=== PATIENT | male | born 2000 | race American Indian/Alaskan Native ===

== ENCOUNTER 2020-07-25 14:33 | Emergency (ER) | payer SELFPAY ==
--- NOTE | 2020-07-25 17:06 | Emergency Department Report ---
- General Chief complaint: Skin Rash Stated complaint: BREAKING OUT BUMPS ON BODY Time Seen by Provider: 07/25/20 17:01 Source: patient Mode of arrival: Ambulatory Limitations: No Limitations - History of Present Illness Initial comments: Patient is a 20-year-old male presents emergency room with complaints of a diffuse rash that began 6 days ago. He states initially it became a on his arms and then spread diffusely. He denies any involvement of his face. He states that the only different thing he did is he slept with an old comforter that his dad gave him. He denies any new medications, soaps, lotions, detergents, anything else new that he can think of. He denies any facial swelling, difficulty swallowing, difficulty breathing, sensation of throat closing, fever, nausea, vomiting, diarrhea. No past medical history. No known allergies. - Related Data Previous Rx's Medication Instructions Recorded Last Taken Type Naproxen [EC-Naprosyn] 500 mg PO BID #20 tablet. 10/26/19 Unknown Rx methOCARBAMOL [Robaxin TAB] 500 mg PO Q6H #20 tablet 10/26/19 Unknown Rx Clotrimazole/Betamethasone Dip 1 applicatio TP BID #1 cream..g. 07/25/20 Unknown Rx [Lotrisone Cream] Permethrin 5% [Acticin 5% CREAM] 1 applicatio TP ONCE 1 Days #2 tube 07/25/20 Unknown Rx Allergies Allergy/AdvReac Type Severity Reaction Status Date / Time No Known Allergies Allergy Unverified 10/26/19 16:35 Abscess Boil HPI - HPI Chief Complaint: Skin Rash Stated Complaint: BREAKING OUT BUMPS ON BODY Time Seen by Provider: 07/25/20 17:01 Home Medications: Previous Rx's Medication Instructions Recorded Last Taken Type Naproxen [EC-Naprosyn] 500 mg PO BID #20 tablet. 10/26/19 Unknown Rx methOCARBAMOL [Robaxin TAB] 500 mg PO Q6H #20 tablet 10/26/19 Unknown Rx Clotrimazole/Betamethasone Dip 1 applicatio TP BID #1 cream..g. 07/25/20 Unknown Rx [Lotrisone Cream] Permethrin 5% [Acticin 5% CREAM] 1 applicatio TP ONCE 1 Days #2 tube 07/25/20 Unknown Rx Allergies/Adverse Reactions: Allergies Allergy/AdvReac Type Severity Reaction Status Date / Time No Known Allergies Allergy Unverified 10/26/19 16:35 ED Review of Systems ROS: Stated complaint: BREAKING OUT BUMPS ON BODY Other details as noted in HPI Comment: All other systems reviewed and negative ED Past Medical Hx - Past Medical History Hx Asthma: Yes - Social History Smoking Status: Never Smoker Substance Use Type: Marijuana - Medications Home Medications: Home Medications Medication Instructions Recorded Confirmed Last Taken Type Naproxen [EC-Naprosyn] 500 mg PO BID #20 tablet.dr 10/26/19 Unknown Rx methOCARBAMOL [Robaxin TAB] 500 mg PO Q6H #20 tablet 10/26/19 Unknown Rx Clotrimazole/Betamethasone Dip 1 applicatio TP BID #1 cream..g. 07/25/20 Unknown Rx [Lotrisone Cream] Permethrin 5% [Acticin 5% CREAM] 1 applicatio TP ONCE 1 Days #2 tube 07/25/20 Unknown Rx ED Physical Exam - General Limitations: No Limitations General appearance: alert, in no apparent distress - Head Head exam: Present: atraumatic, normocephalic - Eye Eye exam: Present: normal appearance - ENT ENT exam: Present: mucous membranes moist - Respiratory Respiratory exam: Absent: respiratory distress, accessory muscle use - Neurological Exam Neurological exam: Present: alert, oriented X3 - Psychiatric Psychiatric exam: Present: normal affect, normal mood - Skin Skin exam: Present: warm, dry, rash (diffuse maculopapular rash, no blistering, no skin denuding, no necrosis) ED Medical Decision Making - Medical Decision Making Patient is a 20-year-old male presents emergency room with complaints of a diffuse rash that began 6 days ago. He states initially it became a on his arms and then spread diffusely. He denies any involvement of his face. He states that the only different thing he did is he slept with an old comforter that his dad gave him. He denies any new medications, soaps, lotions, detergents, anything else new that he can think of. He denies any facial swelling, difficulty swallowing, difficulty breathing, sensation of throat closing, fever, nausea, vomiting, diarrhea. No past medical history. No known allergies. Vitals are stable. On exam:diffuse maculopapular rash, no blistering, no skin denuding, no necrosis. Examination could be potentially consistent with scabies. Patient will be given prescription for permethrin and Lotrisone. Discussed the importance of primary care follow-up for reexamination. Advised patient Please use medication as prescribed. Please do not sleep with the comforter you were using. Please take your clothes and either wash them in hot bleach or bag them up in a bag and let them sit for 10 days. Follow-up with your primary care doctor. Return to emergency room for any new or worsening symptoms. Critical care attestation.: If time is entered above; I have spent that time in minutes in the direct care of this critically ill patient, excluding procedure time. ED Disposition Clinical Impression: Rash Disposition: DC-01 TO HOME OR SELFCARE Is pt being admited?: No Does the pt Need Aspirin: No Condition: Stable Instructions: Rash, Adult, [id number] Additional Instructions: Please use medication as prescribed. Please do not sleep with the comforter you were using. Please take your clothes and either wash them in hot bleach or bag them up in a bag and let them sit for 10 days. Follow-up with your primary care doctor. Return to emergency room for any new or worsening symptoms. Prescriptions: Permethrin 5% [Acticin 5% CREAM] 1 applicatio TP ONCE 1 Days #2 tube Clotrimazole/Betamethasone Dip [Lotrisone Cream] 1 applicatio TP BID #1 madisyn horn Referrals: BANDAR PEREZ MD [Staff Physician] - 2-3 Days [facility] [Provider Group] - 2-3 Days Time of Disposition: 17:04 Print Language: ZAMBIAN
[2020-07-25 21:38] VITALS: BP 111/70
== END 2020-07-25 17:30 | disposition home or self-care (01) ==
LOC: ED 14:33
DX: R21 Rash and other nonspecific skin eruption (principal); F12.90 Cannabis use, unspecified, uncomplicated; Z79.899 Other long term (current) drug therapy
CPT/HCPCS: 99281